=== PATIENT | male | born 1955 | race Caucasian/White ===

== ENCOUNTER 2021-01-04 08:42 | Outpatient (CLI) | payer OTHER ==
[2021-01-04 15:07] LABS: BASOPHILS # (AUTO) 0.1 10^3/uL (0.0-0.1); BASOPHILS % (AUTO) 0.8 %; EOSINOPHILS # (AUTO) 0.2 10^3/uL (0.0-0.7); EOSINOPHILS % (AUTO) 3.2 %; HCT - HEMATOCRIT 43.9 % (42.0-52.0); HGB - HEMOGLOBIN 14.4 g/dL (14.0-18.0); LYMPHOCYTES # (AUTO) 2.2 10^3/uL (1.5-3.5); LYMPHOCYTES % (AUTO) 34.7 %; MEAN CORPUSCULAR HEMOGLOBIN 32.6 pg (27.0-31.0); MEAN CORPUSCULAR HGB CONC 32.8 g/dL (32.0-36.0); MEAN CORPUSCULAR VOLUME 99.3 fL (80.0-94.0); MONOCYTES # (AUTO) 0.6 10^3/uL (0.0-1.0); MONOCYTES % (AUTO) 8.7 %; NEUTROPHILS # (AUTO) 3.3 10^3/uL (1.5-6.6); NEUTROPHILS % (AUTO) 52.1 %; PLT - PLATELET COUNT 226 10^3/uL (130-450); RED BLOOD COUNT 4.42 10^6/uL (4.70-6.10); RED CELL DISTRIBUTION WIDTH 12.3 % (12.0-15.0); WHITE BLOOD COUNT 6.3 x10^3/uL (4.8-10.8)
[2021-01-04 15:21] LABS: ALBUMIN/GLOBULIN RATIO 1.7 (1.0-2.2); ALKALINE PHOSPHATASE 80 IU/L (42-121); ALT ALANINE AMINOTRANSFERASE 20 IU/L (10-60); AST ASPARTATE AMINOTRANSFERASE 20 IU/L (10-42); BILIRUBIN,TOTAL 0.6 mg/dL (0.2-1.0); BUN - BLOOD UREA NITROGEN 17 mg/dL (6-20); CALCIUM 8.6 mg/dL (8.5-10.3); CARBON DIOXIDE - CO2 26 mmol/L (21-32); CHLORIDE 102 mmol/L (101-111); CHOL/HDL RATIO 7.2 (<5.0); CHOLESTEROL 222 mg/dL; CREATININE 1.2 mg/dL (0.6-1.2); GFR - MDRD 61 (>89); GLUCOSE 108 mg/dL (70-100); HDL CHOLESTEROL 31 mg/dL; POTASSIUM 3.8 mmol/L (3.5-5.0); SODIUM 135 mmol/L (135-145); TOTAL PROTEIN 6.3 g/dL (6.7-8.2); TRIGLYCERIDES 481 mg/dL
[2021-01-04 15:34] LABS: THYROID STIMULATING HORMONE 1.88 uIU/mL (0.34-5.60)
[2021-01-04 15:40] LABS: LDL CHOLESTEROL,DIRECT 93 mg/dL
== END 2021-01-04 08:43 | disposition home or self-care (01) ==
LOC: LAB.S 08:42
PROVIDERS: ATTEND Physician Assistant
DX: Z00.00 Encounter for general adult medical examination without abnormal findings (principal); J30.2 Other seasonal allergic rhinitis; Z82.3 Family history of stroke; Z82.49 Family history of ischemic heart disease and other diseases of the circulatory system; E78.5 Hyperlipidemia, unspecified
CPT/HCPCS: 36415; 80053; 80061; 83721; 84443; 85025

== ENCOUNTER 2021-02-15 09:26 | Outpatient (CLI) | payer OTHER ==
[2021-02-15] MEDS ORDERED: IOVERSOL 320 100 ML VIAL IVP ONE ×2 (09:49→12:08)
[2021-02-15] MEDS ORDERED: IOPAMIDOL-300 50 ML VIAL ONE (09:49)
[2021-02-15 09:54] LABS: CREATININE 1.2 mg/dL (0.6-1.2)
[2021-02-15] MEDS ORDERED: IOPAMIDOL-300 50 ML VIAL PO ONE (12:08)
--- NOTE | 2021-02-15 17:22 | CT Report ---
PROCEDURE: Abdomen/Pelvis W INDICATIONS: RECURRENT RIGHT INGUINAL HERNIA CONTRAST: IV CONTRAST: Optiray 320 ml: 100 PO CONTRAST: Isovue 300 ml50 TECHNIQUE: After the administration of contrast, 5 mm thick sections acquired from the diaphragms to the sym physis. 5 mm thick coronal and sagittal reformats were acquired. For radiation dose reduction, the following was used: automated exposure control, adjustment of mA and/or kV according to patient size . COMPARISON: None. FINDINGS: Image quality: Excellent. ABDOMEN: Lung bases: Lung bases are clear. Heart size is normal. There is a small hiatal hernia. Solid organs: There is a nonspecific oval hypodense lesion in the left hepatic lobe in segment 2 gia uring up to 2.0 x 1.5 cm. Findings are incompletely characterized on the study. Gallbladder appears w ithin normal limits without calcified gallstones. Biliary system is non dilated. The spleen is gagandeep l in size. Pancreas enhances normally without peripancreatic fat stranding or fluid collections. No adrenal nodules. Kidneys demonstrate no hydronephrosis. Peritoneum and bowel: Bowel loops demonstrate normal wall thickness and caliber. The appendix is nor mal in appearance. There is colonic diverticulosis without acute diverticulitis. No free fluid or ai r. Nodes and vessels: No retroperitoneal or mesenteric adenopathy by size criteria. Aorta and inferior vena cava are normal in size. Miscellaneous: No ventral hernias. PELVIS: Genitourinary: Bladder wall thickness is normal. Miscellaneous: There are minimal fat-containing bilateral inguinal hernias. No evidence of bowel her niation. No inguinal adenopathy. Bones: No suspicious bony lesions. No vertebral body compression fractures. IMPRESSION: 1. Minimal bilateral fat-containing inguinal hernias. No evidence of bowel herniation. 2. Nonspecific hypodense lesion in the left lobe. Recommend further evaluation with a liver protocol MRI or CT when clinically feasible. Reviewed by: Figueroa Garcia MD on 02/15/2021 5:21 PM PDT Approved by: Figueroa Garcia MD on 02/15/2021 5:21 PM PDT Station ID: [id number]
== END 2021-02-15 09:27 | disposition home or self-care (01) ==
LOC: DI 09:26
PROVIDERS: ATTEND Surgery
DX: Z01.818 Encounter for other preprocedural examination (principal); Z20.822 Contact with and (suspected) exposure to COVID-19; K40.20 Bilateral inguinal hernia, without obstruction or gangrene, not specified as recurrent; R93.2 Abnormal findings on diagnostic imaging of liver and biliary tract
CPT/HCPCS: 36415; 74177; 82565; 87635; Q9967

== ENCOUNTER 2021-02-18 06:39 | Inpatient (IN) | payer OTHER ==
[~2021-02-18 06:39] MED LIST: ceFAZolin 2 GM/50 ML 2 GM/50 ML BAG IV ONE
[2021-02-18] MEDS ORDERED: LACTATED RINGERS 1,000 ML IV ONE ×3 (06:51→16:35)
--- NOTE | 2021-02-18 08:38 | ANESTHESIA ---
Pre-Anesthesia VS, & Labs - Diagnosis lright inguinal hernia - Procedure laparoscopic hernia repair, right possible bilateral Vital Signs: Temp Pulse Resp BP Pulse Ox 36.5 C 66 16 120/95 H 97 02/18/21 06:54 02/18/21 06:54 02/18/21 06:54 02/18/21 06:54 02/18/21 06:54 Height: 5 ft 7 in Weight (kg): 74.9 kg Body Mass Index: 25.8 BMI Classification: Overweight - NPO >8 hours Home Medications and Allergies Home Medications: Ambulatory Orders Acyclovir 400 mg PO BID 02/16/21 gemfibroziL [Lopid] 600 mg PO BIDAC 02/16/21 Acyclovir 400 mg PO BID 02/16/21 gemfibroziL [Lopid] 600 mg PO BIDAC 02/16/21 Allergies/Adverse Reactions: Allergies Allergy/AdvReac Type Severity Reaction Status Date / Time No Known Drug Allergies Allergy Verified 02/16/21 08:53 Anes History & Medical History - Anesthetic History Anesthesia Complications: reports: No previous complications - Medical History Cardiovascular: reports: High cholesterol Pulmonary: reports: None Gastrointestinal: reports: None Urinary: reports: None Musculoskeletal: reports: Osteoarthritis Endocrine/Autoimmune: reports: None Skin: reports: Herpes zoster - Surgical History General: reports: Colonoscopy, Other Orthopedic: reports: Arthroscopic surgery Exam General: Alert Dental: WNL Mouth Opening: Greater than 4 Fingerbreadths Neck Mobility: Normal Mallampati classification: II Respiratory: Lungs clear Cardiovascular: Regular rate Plan Anesthesia Type: General Consent for Procedure(s) Verified and Reviewed: Yes Code Status: Attempt Resuscitation ASA classification: 2-Mild systemic disease Is this case an emergency?: No
[2021-02-18] MEDS ORDERED: LIDOCAINE-MPF 2% 5 ML VIAL ONE (08:39)
[2021-02-18] MEDS ORDERED: MIDAZOLAM 2 MG/2 ML VIAL ONE (08:39)
[2021-02-18] MEDS ORDERED: ROCURONIUM 50 MG/5 ML VIAL ONE ×2 (08:39→13:26)
[2021-02-18] MEDS ORDERED: PROPOFOL 200 MG/20 ML VIAL IVP ONE (08:39)
[2021-02-18] MEDS ORDERED: fentaNYL 100 MCG/2 ML VIAL ONE ×2 (08:39→12:26)
[2021-02-18] MEDS ORDERED: BUPIVACAINE 0.5% PF 30 ML VIAL ONE (11:41)
[2021-02-18] MEDS ORDERED: LIDOCAINE MPF 2%-EPI 1:200000 20 ML VIAL ONE (11:41)
[2021-02-18] MEDS ORDERED: BUPIVACAINE 0.5% PF 30 ML VIAL INFIL ONE (12:19)
[2021-02-18] MEDS ORDERED: LIDOCAINE 2%-EPI 1:100000 20 ML MDV SUBQ ONE (12:20)
[2021-02-18] MEDS ORDERED: DEXAMETHASONE 4 MG/ML VIAL ONE (12:50)
[2021-02-18] MEDS ORDERED: HYDROmorphone 1 MG/ML CARPUJECT ONE (15:09)
[2021-02-18] MEDS ORDERED: GLYCOPYRROLATE 1 MG/5 ML VIAL ONE (15:49)
[2021-02-18] MEDS ORDERED: NEOSTIGMINE 1 MG/1 ML 10 ML MDV ONE (15:49)
[2021-02-18] MEDS ORDERED: ONDANSETRON 4 MG/2 ML VIAL ONE (15:50)
[2021-02-18] MEDS ORDERED: ROPIVACAINE 0.5% PF 20 ML AMPULE ONE (15:52)
[2021-02-18] MEDS ORDERED: LACTATED RINGERS 100 ML IV ONE (16:35)
[2021-02-18] MEDS ORDERED: HYDROmorphone 0.5 MG/0.5 ML SYRINGE IVP PRN ×2 (16:40→17:05)
[2021-02-18] MEDS ORDERED: ONDANSETRON 4 MG/2 ML VIAL IVP PRN ×2 (16:40→17:05)
--- NOTE | 2021-02-18 16:49 | OPERATIVE REPORT ---
Operative Report - General Admit Date: 02/19/21 Procedure Date: 02/18/21 Planned Procedure: 1. Diagnostic laparoscopy 2. Transabdominal preperitoneal (ELLE) bilateral inguinal hernia repair 3. Umbilical hernia repair primary open 4. Transversus abdominis plane block Pre-Op Diagnosis: Recurrent bilateral inguinal hernia, Abdominal pain and inguinal pain. Procedure Performed: 1. Diagnostic laparoscopy 2. Transabdominal preperitoneal (ELLE) bilateral inguinal hernia repair 3. Umbilical hernia repair primary open 4. Transversus abdominis plane block 5. Extensive adhesiolysis 6. Bilateral mesh repair with extra-large preformed mesh Post Op Diagnosis: Same; extensive adhesions; large left-sided mesh plug; bilateral direct def - Procedure Note Primary Surgeon: Adilia Secondary Surgeon: Elmer Anesthesia Provider: Yudy Anesthesia Technique: General ET tube, Local, Regional block Pathology: 1. Left cord lipoma 2. Right cord lipoma 3. Colonic adhesion Estimated Blood Loss (mL): 25 Indications: See EMR however multiple failed historic hernia repairs bilateral open. Findings: 1. Dense pelvic adhesions 2. Large mesh plug on the left requiring careful adhesiolysis 3. Thin peritoneum requiring cautious and diligent adhesiolysis to prevent rants and/or tears 4. Large direct/indirect/femoral defects appreciated bilaterally which were adequately covered with extra-large preformed left and right meshes 5. Umbilical hernia repaired open 6. Successful transabdominal preperitoneal repair with peritoneum closed laparoscopically with V-Loc suture Complications: NONE - Other Other Information/Narrative: Operative Report: Procedures performed: 1. Diagnostic laparoscopy 2. Transabdominal preperitoneal (ELLE) bilateral inguinal hernia repair 3. Umbilical hernia repair primary open 4. Transversus abdominis plane block 5. Extensive adhesiolysis 6. Bilateral mesh repair with extra-large preformed mesh Intraoperative findings: 1. Dense pelvic adhesions 2. Large mesh plug on the left requiring careful adhesiolysis 3. Thin peritoneum requiring cautious and diligent adhesiolysis to prevent rants and/or tears 4. Large direct/indirect/femoral defects appreciated bilaterally which were adequately covered with extra-large preformed left and right meshes 5. Umbilical hernia repaired open 6. Successful transabdominal preperitoneal repair with peritoneum closed laparoscopically with V-Loc suture Procedural report: Patient was taken to the operating room placed supine on the operating table informed consent was already obtained. Patient was induced for general endotracheal anesthesia. Laird catheter was placed sterilely. Patient was prepped and draped in the usual sterile fashion. A timeout was called and agreed to by all in the room. Patient was taken to the operating room placed supine on the operating table. Informed consent was already obtained. Patient was induced for general endotracheal anesthesia. Patient at this time was placed for Laird catheter. Patient was offloaded and padded. Patient was prepped and draped in the usual sterile fashion. Timeout was called and agreed to by all in the room. A plan access point was incised periumbilical. An incision was made sharply. Skin and subcutaneous tissues were divided using Bovie electrocautery. Fascia was encountered it was sharply divided. Muscle was bluntly divided. Posterior fascia was elevated and sharply divided. Abdominal cavity was entered without incident. Patient was noted for an umbilical hernia that would be enlarged to accommodate the Malik trocar. We insufflated the abdomen to 50 mmHg without any complication. Additional trochars were placed laterally on the left 5 mm to begin with a right-sided inguinal hernia repair. Please note dense pelvic adhesions were noted. Case began with adhesiolysis as follows: Trochars were sequentially placed towards affording appropriate abdominal access for laparoscopic and ultimately robotic adhesiolysis and enterolysis. This was performed in such a way as to maximize exposure and minimize abdominal trauma. We clearly visualized, after appropriate and lengthy laparoscopic adhesiolysis, each trocar placement. Thereafter once appropriate and safe exposure was achieved without any inadvertent injuries or other complicating factors, we proceeded laparoscopically in such a way as to take down the patient's extensive intra- abdominal adhesions using sharp laparoscopic dissection, diligent electrocautery, and appropriate countertraction. Please note for multiple reasons as listed above under brief procedural findings, this patient was best suited to minimal access adhesiolysis towards avoiding open intervention, reducing the associated risks thereof, maximizing recovery, minimizing postoperative morbidity and associated stigmata, and enhancing the patient's convalescence towards assuring safe and expeditious ushering of patient into the next step of therapeutic intervention which was crucial in overall plan of care. This proceeded without any untoward complications, and without any inadvertent injuries or other adverse effect events. At this time we proceeded to repair the right inguinal hernia. We proceeded with two 5 mm trochars both on the left lateral to the rectus sheath. We proceeded with the camera in the umbilicus. This was approached in this manner given the planned umbilical hernia laparoscopic assisted and the plan to perform inguinal hernia repair laparoscopically as well. Please note the patient was marked for bilateral inguinal hernia repair preoperatively which was also confirmed during timeout. Patient had had a total of 4 inguinal hernia repairs throughout his life; 2 on each side. And we proceeded to perform bilateral repairs and again began with the right. Both inguinal regions were inspected and the median umbilical ligament, medial umbilical ligament and lateral umbilical fold were identified the median umbilical ligament was divided sharply with electrocautery to achieve optimal exposure. The right abdominal peritoneum was incised with laparoscopic electrocautery along a line 2 cm above the superior edge of the hernia defect, extending from the medial median umbilical ligament to the anterior superior iliac spine. The peritoneal flap was mobilized inferiorly using blunt and sharp dissection. The inferior epigastric vessels were exposed and the pubic symphysis was identified. Tobin's ligament was dissected to its junction with femoral vein. The dissection was continued inferiorly to the iliopubic tract, with care taken to avoid injury to the femoral branch of the general femoral nerve and the lateral femoral cutaneous nerve. Please note that as we began and continued dissection of the peritoneum there was extensive adhesions which were divided to avoid any inadvertent injury if the peritoneum was compromised. The right ureter was identified and protected throughout. The cord structures were skeletonized. The direct hernia sac was identified and reduced by gentle traction. The indirect hernia sac was noted to be small and was easily mobilized from the cord structures and reduced into the peritoneal cavity. A extra large piece of mesh 3D Bard synthetic mesh was rolled longitudinally into a compact cylinder and passed through the umbilical trocar. The cylinder was placed along the inferior aspect of the working space and unrolled into place to completely cover the defect direct indirect and femoral spaces. We used a Bard 3D max mesh [extra-large] design for right inguinal hernia placement. With great care we unraveled the mesh which provided excellent coverage of all the large defects with that were appreciated which included a large indirect defect, a large direct defect as well as a large femoral defect all on the right. We tacked the mesh with permanent tacker medially and made sure that we had good apposition throughout it was tacked laterally as well. Secondary to the friability of the peritoneum we opted to close this side at the conclusion of the case. Please note that great care was taken throughout this case given the friability and thinness of the historic peritoneum which was maintained intact throughout At this time we proceeded to repair the left inguinal hernia. We proceeded with two 5 mm trochars both on the right lateral to the rectus sheath. We proceeded with the camera in the umbilicus. This was approached in this manner given the planned umbilical hernia laparoscopic assisted and the plan to perform inguinal hernia repair laparoscopically as well. Please note the patient was marked for bilateral inguinal hernia repair preoperatively which was also confirmed during timeout. Please see above Both inguinal regions were expected and the median umbilical ligament, medial umbilical ligament and lateral umbilical fold were identified the median umbilical ligament was divided sharply with electrocautery to achieve optimal exposure. The left abdominal peritoneum was incised with endoscopic electrocautery along a line 2 cm above the superior edge of the hernia defect, extending from the medial median umbilical ligament to the anterior superior iliac spine. The peritoneal flap was mobilized inferiorly using blunt and sharp dissection. The inferior epigastric vessels were exposed and the pubic symphysis was identified. Please note a large left mesh was noted and it adhered to the abdominal peritoneum which necessarily had to be carefully resected to maintain its integrity. This area was closed independently while addressing bilateral peritoneal access incisions at the conclusion of the case. Tobin's ligament was dissected to its junction with femoral vein. The dissection was continued inferiorly to the iliopubic tract, with care taken to avoid injury to the femoral branch of the general femoral nerve and the lateral femoral cutaneous nerve. Please note that as we began and continued dissection of the peritoneum there was left sided and sigmoid colonic adhesions which were divided to avoid any inadvertent injury if the peritoneum was compromised. The left ureter was identified and protected throughout. A dense adhesion of the sigmoid colon which appeared to be adjacent to a diverticulum was excised and sent for permanent pathology. This area was also reinforced for closure using a Endoloop however there was no concerns for any exposed bowel. There was no spillage as well. The cord structures were skeletonized. The direct hernia sac was identified and reduced by gentle traction. The indirect hernia sac was noted to be small and was easily mobilized from the cord structures and reduced into the peritoneal cavity. A large piece of mesh was rolled longitudinally into a compact cylinder and passed through the umbilical trocar. The cylinder was placed along the inferior aspect of the working space and unrolled into place to completely cover the defect direct indirect and femoral spaces. We used a [employer] 3D max mesh [extra-large] design for left inguinal hernia placement. The mesh was secured with a permanent tacking device laparoscopically into place along the pubic tubercle. We positioned this in such a way in order to provide maximum prophylaxis against recurrence. Thereafter we proceeded to close the peritoneal flap as follows. We closed the peritoneal flap using a V-Loc suture starting laterally and progressing medially this was closed over mesh without any complication. Please note that this was performed by directionally with laparoscopic needle drivers without any complication. There was no exposed mesh opposing any of the intra-abdominal contents after completing this portion of the operative intervention. After assuring adequate hemostasis we proceeded with the umbilical hernia repair. The small bowel was run without any complication. There is no inadvertent injury. Wounds were hemostatic. We proceeded to desufflate the abdomen after removing all the secondary 5 mm trochars bilaterally. We plan to repair the umbilical hernia with multiple [id number]'s of 0 Vicryl. This was approximated without any complication. Abdomen was already desufflated. Please note the patient had historic right orchiectomy. Both scrotal sacs were evaluated and testicle were evaluated at the conclusion of this case after dressings were applied. A dressing the umbilical hernia once again, after closure, we proceeded with umbilical plasty. All surgical incisions were reapproximated with skin sandee. All wounds were dressed with Telfa and Tegaderm. I was present for the operative intervention in its entirety. All counts of sponges needles and instruments were correct at the conclusion of this case. Patient tolerated well for which is no complication. Laird catheter was kept in place. Please note that voice recognition software was used to transcribe this note and inadvertent errors might persist in spite of review and editing. I am obliged to you for your attention. I am thankful to you for allowing me to participate with you in this care of this patient.
[2021-02-18] MEDS ORDERED: fentaNYL 100 MCG/2 ML VIAL IVP PRN (17:05)
[2021-02-18] MEDS ORDERED: MORPHINE 2 MG/ML CARPUJECT IVP PRN (17:05)
[2021-02-18] MEDS ORDERED: NALOXONE 0.4 MG/ML VIAL IVP PRN (17:05)
[2021-02-18] MEDS ORDERED: ATROPINE ABBOJECT 1 MG/10 ML SYRINGE IVP PRN (17:05)
--- NOTE | 2021-02-18 17:05 | PROVIDER PROGRESS NOTE ---
Progress Note Procedure Date: 02/18/21 Planned Procedure: 1. Diagnostic laparoscopy 2. Transabdominal preperitoneal (ELLE) bilateral inguinal hernia repair 3. Umbilical hernia repair primary open 4. Transversus abdominis plane block Pre-Op Diagnosis: Recurrent bilateral inguinal hernia, Abdominal pain and inguinal pain. Procedure Performed: 1. Diagnostic laparoscopy 2. Transabdominal preperitoneal (ELLE) bilateral inguinal hernia repair 3. Umbilical hernia repair primary open 4. Transversus abdominis plane block 5. Extensive adhesiolysis 6. Bilateral mesh repair with extra-large preformed mesh Post Op Diagnosis: Same; extensive adhesions; large left-sided mesh plug; bilateral direct def - Procedure Note Primary Surgeon: Adilia Secondary Surgeon: Elmer Anesthesia Provider: Yudy Anesthesia Technique: General ET tube, Local, Regional block Pathology: 1. Left cord lipoma 2. Right cord lipoma 3. Colonic adhesion Estimated Blood Loss (mL): 25 Indications: See EMR however multiple failed historic hernia repairs bilateral open. Findings: 1. Dense pelvic adhesions 2. Large mesh plug on the left requiring careful adhesiolysis 3. Thin peritoneum requiring cautious and diligent adhesiolysis to prevent rants and/or tears 4. Large direct/indirect/femoral defects appreciated bilaterally which were adequately covered with extra-large preformed left and right meshes 5. Umbilical hernia repaired open 6. Successful transabdominal preperitoneal repair with peritoneum closed laparoscopically with V-Loc suture Complications: NONE
--- NOTE | 2021-02-18 17:06 | ANESTHESIA POST OP EVALUATION ---
Anesthesia Post Eval - Post Anesthesia Eval Vitals: Last Vital Signs Temp 36.6 C 02/18/21 16:58 Pulse 100 02/18/21 16:58 Resp 14 02/18/21 16:58 BP 158/97 H 02/18/21 16:58 Pulse Ox 100 02/18/21 16:58 CV Function Including HR & BP: Stable Pain Control: Satisfactory Nausea & Vomiting: Negative Mental Status: Baseline Respiratory Status: Airway Patent Hydration Status: Satisfactory Anesthesia Complications: None
[2021-02-18] MEDS: LACTATED RINGERS 1,000 ML IV SCH (17:47)
[2021-02-18] MEDS ORDERED: LACTATED RINGERS 1,000 ML IV SCH (18:00)
[2021-02-18] MEDS ORDERED: TAMSULOSIN 0.4 MG CAPSULE PO ONE (19:00)
[2021-02-18] MEDS: oxyCODONE 5 MG TABLET PO PRN ×2 (19:30→23:54)
[2021-02-19] MEDS: LACTATED RINGERS 1,000 ML IV SCH ×3 (02:19→21:57)
[2021-02-19] MEDS: oxyCODONE 5 MG TABLET PO PRN ×2 (07:34→12:18)
--- NOTE | 2021-02-19 08:38 | PHARMACY PROGRESS NOTE ---
- Best Possible Medication History Admit Date and Time: Processed by: Nursing Medication History completed: Yes Patient Interview: Completed Secondary Source(s): Physician records, Pharmacy records, Insurance records As the person ultimately responsible for medication therapy, providers are able to order a medication from an existing home medication list in [facility] via the "Reconcile Routine" prior to Confirmation of that medication by clinical support specialist. Such practice is discouraged except when the physician, in their clinical judgment, deems that a medical need exists for a medication without regard to previous use.
[2021-02-19] MEDS: TAMSULOSIN 0.4 MG CAPSULE PO SCH (08:43)
[2021-02-19] MEDS ORDERED: ceFAZolin 2 GM in SODIUM CHLORIDE 0.9% 100ML 100 ML IV SCH (13:00)
[2021-02-19] MEDS: KETOROLAC 30 MG/ML VIAL IVP SCH ×2 (13:18→17:49)
[2021-02-19] MEDS: DOCUSATE SODIUM 100 MG CAPSULE PO SCH ×2 (13:19→21:18)
[2021-02-19] MEDS: polyethylene glycoL 3350 17 GM PACKET PO SCH ×2 (13:19→21:18)
[2021-02-19] MEDS: methocarbamoL 500 MG TABLET PO SCH ×2 (13:19→17:49)
[2021-02-19] MEDS: ceFAZolin 2 GM/50 ML 2 GM/50 ML BAG IV SCH ×2 (13:20→21:18)
--- NOTE | 2021-02-19 18:06 | PROVIDER PROGRESS NOTE ---
Progress Note Subjective Postoperative day #1 status post below listed procedure. Patient with nausea. Abdominal distention. No bowel function as of yet. Significant pain. Significant history of multiple failed bilateral inguinal hernias requiring extensive adhesiolysis and operative intervention to achieve bilateral laparos copic transabdominal preperitoneal repairs. Pre-Op Diagnosis: Recurrent bilateral inguinal hernia, Abdominal pain and inguinal pain. Procedure Performed: 1. Diagnostic laparoscopy 2. Transabdominal preperitoneal (ELLE) bilateral inguinal hernia repair 3. Umbilical hernia repair primary open 4. Transversus abdominis plane block 5. Extensive adhesiolysis 6. Bilateral mesh repair with extra-large preformed mesh Post Op Diagnosis: Same; extensive adhesions; large left-sided mesh plug; bilateral direct def Objective Afebrile hemodynamically except above General Appearance: positive: No acute distress Eyes Bilateral: positive: Normal inspection ENT: positive: ENT inspection nml Neck: positive: Nml inspection Respiratory: positive: Chest non-tender, No respiratory distress, Breath sounds nml. negative: Wheezes, Rales, Rhonchi Cardiovascular: positive: Regular rate & rhythm Abdomen: positive: No distention, Other. negative: Guarding, Rebound Extremities: positive: Non-tender, Full ROM, Nml appearance Neurologic/Psychiatric: positive: Oriented x3, CN's nml (2-12) Abdominal Exam: Inspection - Erythema none; Scars trocars well healed Auscultation -normoactive bowel sounds Palpation - Hernias none; Fluctuance none; Induration none; Scar N/A [place] intact. Please note the patient has history of right orchiectomy. Left testicle intact. Impression/Plan Postoperative day #1. Ileus. Transition to inpatient secondary to postoperative pain, nausea, and ileus. (1) GI - IVF, bowel regimen, advance diet as tolerated. GI ppx. Anticipate ileus. Opiate sparring analgesia. (2) SURGERY -pain management. Avoid heavy lift push pull. (3) Renal/Lytes - continue IVF. Renal indices within normal limits. (4) Respiratory - O2 as necessary. Continue IS. (5) Heme - Will continue with DVT ppx. H/H stable. (6) Cardiovascular - HD acceptable. (7) Neuro - Opiate sparring analgesia. Antispasmodics with Robaxin. Toradol. Neuropathic agents. (8) Immune/Infectious Disease - Continue antibiotics given complex recurrent bilateral inguinal hernia repair with mesh over pre-existing mesh. No spillage clean case.
[2021-02-20] MEDS: methocarbamoL 500 MG TABLET PO SCH ×3 (00:03→13:21)
[2021-02-20] MEDS: KETOROLAC 30 MG/ML VIAL IVP SCH ×3 (00:03→13:21)
[2021-02-20 05:12] LABS: BASOPHILS % (AUTO) 0.4 %; EOSINOPHILS # (AUTO) 0.1 10^3/uL (0.0-0.7); EOSINOPHILS % (AUTO) 1.9 %; HCT - HEMATOCRIT 33.1 % (42.0-52.0); HGB - HEMOGLOBIN 10.9 g/dL (14.0-18.0); LYMPHOCYTES # (AUTO) 1.7 10^3/uL (1.5-3.5); LYMPHOCYTES % (AUTO) 24.3 %; MEAN CORPUSCULAR HEMOGLOBIN 32.7 pg (27.0-31.0); MEAN CORPUSCULAR HGB CONC 32.9 g/dL (32.0-36.0); MEAN CORPUSCULAR VOLUME 99.4 fL (80.0-94.0); MEAN PLATELET VOLUME 9.7 fL (7.4-11.4); MONOCYTES # (AUTO) 0.7 10^3/uL (0.0-1.0); MONOCYTES % (AUTO) 10.1 %; NEUTROPHILS # (AUTO) 4.3 10^3/uL (1.5-6.6); NEUTROPHILS % (AUTO) 62.9 %; PLT - PLATELET COUNT 159 10^3/uL (130-450); RED BLOOD COUNT 3.33 10^6/uL (4.70-6.10); RED CELL DISTRIBUTION WIDTH 12.4 % (12.0-15.0); WHITE BLOOD COUNT 6.8 x10^3/uL (4.8-10.8)
[2021-02-20 05:25] LABS: ALBUMIN/GLOBULIN RATIO 1.4 (1.0-2.2); BILIRUBIN,TOTAL 0.5 mg/dL (0.2-1.0); CALCIUM 8.1 mg/dL (8.5-10.3); CREATININE 1.2 mg/dL (0.6-1.2); MAGNESIUM 2.1 mg/dL (1.7-2.8); PHOSPHORUS 3.1 mg/dL (2.5-4.6); TOTAL PROTEIN 5.2 g/dL (6.7-8.2)
[2021-02-20] MEDS: ceFAZolin 2 GM/50 ML 2 GM/50 ML BAG IV SCH (05:42)
[2021-02-20] MEDS: TAMSULOSIN 0.4 MG CAPSULE PO SCH (09:04)
[2021-02-20] MEDS: polyethylene glycoL 3350 17 GM PACKET PO SCH (09:04)
[2021-02-20] MEDS: DOCUSATE SODIUM 100 MG CAPSULE PO SCH (09:04)
[2021-02-20] MEDS: LACTATED RINGERS 1,000 ML IV SCH (09:35)
[2021-02-20 12:10] VITALS: BP 130/76
--- NOTE | 2021-02-20 12:44 | Discharge Plan ---
Discharge Plan Problem Reviewed?: Yes Disposition: Home, Self Care Condition: Good Prescriptions: oxyCODONE [Roxicodone] 5 mg PO Q4HR PRN #30 tablet PRN Reason: Pain methocarbamoL [Robaxin] 500 mg PO Q6HR PRN #50 tablet PRN Reason: Spasms Cefadroxil [Duricef] 500 mg PO BID #14 cap Tamsulosin [Flomax] 0.4 mg PO DAILY #28 cap Diet: Soft Activity Restrictions: No heavy push/pull/lift Shower Restrictions: No Driving Restrictions: Yes (No driving while taking narcotic pain medication) Weight Bearing: No heavy lift push pull Instruction Topics: Hernia Surg, Hernia, Hernia Laparoscopic Repair ELLE Plan of Treatment: DISCHARGE INSTRUCTIONS TEMPLATE: No heavy lifting, pushing, or pulling. Stairs are allowed, no strenuous/exertional activities. 5-10lbs weight carrying limit (i.e. gallon of milk) If provided, abdominal binder while out of bed and while ambulating. Call or proceed to clinic/ER for fevers, severe pain, nausea, vomiting, inability to pass flatus/stool, bleeding, wound redness/discharge, weakness, excessively loose stool/diarrhea, or for any other reasonably worrisome symptom or concern. Soft diet, no raw vegetables, avoid high fiber foods. Colace 100mg by mouth twice to three times daily while taking narcotic pain medication. If no bowel movement in 24-48hr, may take 17g Miralax in 8oz water twice daily until bowel movement. May shower, no submersive bathing. Follow up in clinic in 2-4 weeks for wound check and staple removal. No driving while taking narcotic pain medications. Follow up with primary care provider and/or medical subspecialist following discharge as well. Patient not allowed to drive self today or within 24 hours of surgery. Impression/Plan 1. Oxycodone every 4-6 hours as needed for pain 2. Take Colace twice daily and MiraLAX daily as per above while taking narcotics and if no bowel function 3. Avoid nonsteroidals and continue with acetaminophen 650 mg every 6 hours not to exceed 4 g daily 4. Patient to also follow-up in surgery clinic for staple removal. 5. Patient to call or return to the hospital through ER for fevers, nausea, vomiting, abdominal pain or any other worrisome symptoms or concerns. 6. Patient not to return to any work capacity until seen in clinic. 7. Continue antibiotics prophylactic given historic mesh No Smoking: If you smoke, Please STOP! Call for help. Follow-up with: REX MORA PA-C [Primary Care Provider] - Rashaad Pat MD [Provider Admit Priv/Credential] - 2 Weeks
--- NOTE | 2021-02-20 12:45 | DISCHARGE SUMMARY ---
"Discharge Summary Admit Date: 02/18/21 Discharge Date: 02/20/21 Discharging Provider: Adilia Code Status: Attempt Resuscitation Condition at Discharge: Good Discharge Disposition: 01 Home, Self Care - DIAGNOSES Admission Diagnoses: 1. Bilateral recurrent inguinal hernia 2. Bilateral direct, indirect, and femoral defects 3. Umbilical hernia 4. Abdominal adhesions 5. Ileus, postoperative 6. Urinary retention Discharge Diagnoses with Status of Each Condition: 1. Bilateral recurrent inguinal hernia - REPAIRED 2. Bilateral direct, indirect, and femoral defects - REPAIRED 3. Umbilical hernia - REPAIRED 4. Abdominal adhesions - Lysed 5. Ileus, postoperative - Resolved 6. Urinary retention - Resolved - HPI History of Present Illness: 65-year-old male presenting for bilateral inguinal hernia repair. History of multiple bilateral hernia repairs which have failed. Longstanding symptoms from bilateral failed repairs. Patient denies change in bowel function, denies bleeding per rectum, and also denies reflux associated symptoms. Patient does not use tobacco. Patient has a history of alcohol use but denies any associated abuse. No history of heart attack or stroke. Patient takes no systemic anticoagulation. - CONSULTS | PROCEDURES Consultations: None Procedures: OPERATIVE PROCEDURES: 1. Diagnostic laparoscopy 2. Transabdominal preperitoneal (ELLE) bilateral inguinal hernia repair 3. Umbilical hernia repair primary open 4. Transversus abdominis plane block 5. Extensive adhesiolysis 6. Bilateral mesh repair with extra-large preformed mesh Findings: 1. Dense pelvic adhesions 2. Large mesh plug on the left requiring careful adhesiolysis 3. Thin peritoneum requiring cautious and diligent adhesiolysis to prevent rants and/or tears 4. Large direct/indirect/femoral defects appreciated bilaterally which were adequately covered with extra-large preformed left and right meshes 5. Umbilical hernia repaired open 6. Successful transabdominal preperitoneal repair with peritoneum closed laparoscopically with V-Loc suture - HOSPITAL COURSE Hospital Course: Patient underwent above listed procedure. Postoperatively the patient had nausea and associated urinary retention. He was maintained on antiemetics and slow resumption of oral intake. He was aggressively started on a bowel regimen. This is not surprising given the extent of his adhesions and also the difficulty with which this repair was achieved. He also had urinary retention which was addressed with Flomax started perioperatively. Laird catheter did not have to be reinserted. Postoperatively the patient was managed for postoperative analgesia and resumption of bowel function. Patient had successfully passed trial of void with discontinuation of Laird. Tolerated oral intake without any complication. Denied nausea denied vomiting. Was advanced for diet without any complication. Was counseled that given evidence of umbilical hernia which was repaired at the time of the patient's operative intervention that she should avoid any heavy lifting pushing or pulling. Moreover the patient was advised that given the extent of the dissection and the bilateral inguinal hernia repairs for 3 large defects on both sides, he was also to limit exertional activity. Patient was maintained on a bowel regimen. Patient was tolerating oral analgesia, p.o. nutrition with soft diet, voiding spontaneously, with positive resumption of bowel function. Afebrile hemodynamic ally acceptable. Electrolytes repleted throughout and blood counts as a relates to risks of anemia in the perioperative setting and leukocytosis as an inflammatory marker were all stable without any concerns. Patient was maintained for antibiotics given the apposition of historic mesh to the new implant as part of the bilateral ELLE repair; the historic mesh plug in the left lower quadrant from could not be resected given how densely it was incorporated. Discharge instructions given. Analgesia with oxycodone provided at time of discharge. Patient plan for follow-up and will be notified of pathology once returned. - ALLERGIES Allergies/Adverse Reactions: Allergies Allergy/AdvReac Type Severity Reaction Status Date / Time No Known Drug Allergies Allergy Verified 02/16/21 08:53 - MEDICATIONS Home Medications: Ambulatory Orders Medication Instructions Recorded Confirmed Acyclovir 400 mg PO BID 02/16/21 02/16/21 gemfibroziL [Lopid] 600 mg PO BIDAC 02/16/21 02/18/21 Cefadroxil [Duricef] 500 mg PO BID #14 cap 02/20/21 Docusate Sodium 100Mg Capsule 100 mg PO BID 02/20/21 [Colace 100Mg Capsule] Tamsulosin [Flomax] 0.4 mg PO DAILY #28 cap 02/20/21 methocarbamoL [Robaxin] 500 mg PO Q6HR PRN #50 tablet 02/20/21 oxyCODONE [Roxicodone] 5 mg PO Q4HR PRN #30 tablet 02/20/21 polyethylene glycoL 3350 [Miralax] 17 gm PO BID packet 02/20/21 - PHYSICAL EXAM AT DISCHARGE Physical Exam Other/Comments: General Appearance: positive: No acute distress Eyes Bilateral: positive: Normal inspection ENT: positive: ENT inspection nml Neck: positive: Nml inspection Respiratory: positive: Chest non-tender, No respiratory distress, Breath sounds nml. negative: Wheezes, Rales, Rhonchi Cardiovascular: positive: Regular rate & rhythm Abdomen: positive: No distention, Other. negative: Guarding, Rebound Extremities: positive: Non-tender, Full ROM, Nml appearance Neurologic/Psychiatric: positive: Oriented x3, CN's nml (2-12) Abdominal Exam: Inspection - Erythema none ; Scars trocars well healed Auscultation - normoactive bowel sounds Palpation - Hernias none Fluctuance none ; Induration none ; Scar N/A All dressings clean dry and intact. Patient underwent above listed procedure without any complication. Patient underwent operative intervention as listed in the electronic medical record. Tolerated procedure well for which there was no complication. - LABS Result Diagrams: 02/20/21 04:40 02/20/21 04:40 - SEPSIS Current Stage of Sepsis: Ruled out - FOLLOW UP Follow Up: See Discharge Plan. - TIME SPENT Time Spent in Discharge (Minutes): 60"
== END 2021-02-20 14:30 | disposition home or self-care (01) | DRG 940 ==
LOC: SDS 06:39 → MS2 17:38 → SDS 02-19 17:51 → MS2 02-19 17:52
PROVIDERS: ADMIT Surgery; ATTEND Surgery
PROC: 0YUA4JZ Supplement Bilateral Inguinal Region with Synthetic Substitute, Percutaneous Endoscopic Approach (ICD-10-PCS; principal; 2021-02-18 07:30)
DX: G89.18 Other acute postprocedural pain (principal); K56.7 Ileus, unspecified; R33.9 Retention of urine, unspecified; K40.21 Bilateral inguinal hernia, without obstruction or gangrene, recurrent; D17.6 Benign lipomatous neoplasm of spermatic cord; K66.0 Peritoneal adhesions (postprocedural) (postinfection); K42.9 Umbilical hernia without obstruction or gangrene; E66.3 Overweight; Z68.25 Body mass index [BMI] 25.0-25.9, adult
CPT/HCPCS: 36415; 49651; 80053; 83735; 84100; 85025; A9270; C1781; J0690; J1170; J7120

== ENCOUNTER 2021-09-05 08:41 | Outpatient (CLI) | payer OTHER ==
[2021-09-05 14:51] LABS: CHOL/HDL RATIO 6.4 (<5.0); CHOLESTEROL 198 mg/dL; HDL CHOLESTEROL 31 mg/dL; LDL CHOLESTEROL,CALCULATED 117 mg/dL; LDL/HDL RATIO 3.8 (<3.6); TRIGLYCERIDES 252 mg/dL; VLDL CHOLESTEROL 50 mg/dL
== END 2021-09-05 08:42 | disposition home or self-care (01) ==
LOC: LAB.S 08:41
PROVIDERS: ATTEND Internal Medicine
DX: E78.5 Hyperlipidemia, unspecified (principal); E78.1 Pure hyperglyceridemia; Z82.3 Family history of stroke; Z82.49 Family history of ischemic heart disease and other diseases of the circulatory system
CPT/HCPCS: 36415; 80061; 83721

== ENCOUNTER 2021-11-28 08:50 | Outpatient (CLI) | payer BC ==
[2021-11-28 14:57] LABS: BASOPHILS # (AUTO) 0.1 10^3/uL (0.0-0.1); EOSINOPHILS # (AUTO) 0.2 10^3/uL (0.0-0.7); EOSINOPHILS % (AUTO) 2.9 %; HCT - HEMATOCRIT 46.5 % (42.0-52.0); HGB - HEMOGLOBIN 15.6 g/dL (14.0-18.0); LYMPHOCYTES # (AUTO) 2.1 10^3/uL (1.5-3.5); MEAN CORPUSCULAR HEMOGLOBIN 32.7 pg (27.0-31.0); MEAN CORPUSCULAR HGB CONC 33.5 g/dL (32.0-36.0); MEAN CORPUSCULAR VOLUME 97.5 fL (80.0-94.0); MEAN PLATELET VOLUME 9.9 fL (7.4-11.4); MONOCYTES # (AUTO) 0.7 10^3/uL (0.0-1.0); MONOCYTES % (AUTO) 9.8 %; NEUTROPHILS # (AUTO) 3.8 10^3/uL (1.5-6.6); NEUTROPHILS % (AUTO) 55.9 %; PLT - PLATELET COUNT 282 10^3/uL (130-450); RED BLOOD COUNT 4.77 10^6/uL (4.70-6.10); RED CELL DISTRIBUTION WIDTH 12.1 % (12.0-15.0); WHITE BLOOD COUNT 6.8 x10^3/uL (4.8-10.8)
[2021-11-28 15:42] LABS: ALBUMIN 4.2 g/dL (3.2-5.5); ALBUMIN/GLOBULIN RATIO 1.4 (1.0-2.2); ALKALINE PHOSPHATASE 87 IU/L (42-121); ALT ALANINE AMINOTRANSFERASE 18 IU/L (10-60); AST ASPARTATE AMINOTRANSFERASE 23 IU/L (10-42); BILIRUBIN,TOTAL 0.7 mg/dL (0.2-1.0); BUN - BLOOD UREA NITROGEN 24 mg/dL (6-20); CALCIUM 8.9 mg/dL (8.5-10.3); CARBON DIOXIDE - CO2 24 mmol/L (21-32); CHLORIDE 101 mmol/L (101-111); CHOL/HDL RATIO 5.6 (<5.0); CHOLESTEROL 201 mg/dL; CREATININE 1.3 mg/dL (0.6-1.2); GFR - MDRD 55 (>89); GLUCOSE 113 mg/dL (70-100); HDL CHOLESTEROL 36 mg/dL; LDL CHOLESTEROL,CALCULATED 139 mg/dL; LDL/HDL RATIO 3.9 (<3.6); POTASSIUM 4.1 mmol/L (3.5-5.0); SODIUM 135 mmol/L (135-145); TOTAL PROTEIN 7.1 g/dL (6.7-8.2); TRIGLYCERIDES 129 mg/dL; VLDL CHOLESTEROL 26 mg/dL
== END 2021-11-28 08:51 | disposition home or self-care (01) ==
LOC: LAB.S 08:50
PROVIDERS: ATTEND Internal Medicine
DX: E78.1 Pure hyperglyceridemia (principal); Z12.5 Encounter for screening for malignant neoplasm of prostate; Z79.899 Other long term (current) drug therapy
CPT/HCPCS: 36415; 80053; 80061; 83721; 84153; 85025

== ENCOUNTER 2023-04-27 08:49 | Outpatient (CLI) | payer MEDICARE ==
[2023-04-27 14:56] LABS: BASOPHILS # (AUTO) 0.1 10^3/uL (0.0-0.1); EOSINOPHILS # (AUTO) 0.2 10^3/uL (0.0-0.7); EOSINOPHILS % (AUTO) 3.1 %; HCT - HEMATOCRIT 47.1 % (42.0-52.0); HGB - HEMOGLOBIN 15.5 g/dL (14.0-18.0); LYMPHOCYTES # (AUTO) 1.7 10^3/uL (1.5-3.5); LYMPHOCYTES % (AUTO) 28.9 %; MEAN CORPUSCULAR HEMOGLOBIN 32.2 pg (27.0-31.0); MEAN CORPUSCULAR HGB CONC 32.9 g/dL (32.0-36.0); MEAN CORPUSCULAR VOLUME 97.7 fL (80.0-94.0); MEAN PLATELET VOLUME 10.2 fL (7.4-11.4); MONOCYTES # (AUTO) 0.5 10^3/uL (0.0-1.0); MONOCYTES % (AUTO) 8.4 %; NEUTROPHILS # (AUTO) 3.4 10^3/uL (1.5-6.6); NEUTROPHILS % (AUTO) 58.4 %; PLT - PLATELET COUNT 248 10^3/uL (130-450); RED BLOOD COUNT 4.82 10^6/uL (4.70-6.10); RED CELL DISTRIBUTION WIDTH 12.3 % (12.0-15.0); WHITE BLOOD COUNT 5.8 x10^3/uL (4.8-10.8)
[2023-04-27 15:09] LABS: ALBUMIN 4.5 g/dL (3.2-5.5); ALBUMIN/GLOBULIN RATIO 1.7 (1.0-2.2); ALKALINE PHOSPHATASE 85 IU/L (42-121); ALT ALANINE AMINOTRANSFERASE 14 IU/L (10-60); AST ASPARTATE AMINOTRANSFERASE 19 IU/L (10-42); BILIRUBIN,TOTAL 0.7 mg/dL (0.2-1.0); BUN - BLOOD UREA NITROGEN 23 mg/dL (6-20); CALCIUM 9.4 mg/dL (8.5-10.3); CARBON DIOXIDE - CO2 29 mmol/L (21-32); CHLORIDE 105 mmol/L (101-111); CHOL/HDL RATIO 4.9 (<5.0); CHOLESTEROL 185 mg/dL; CREATININE 1.5 mg/dL (0.6-1.3); GFR - MDRD 47 (>89); GLUCOSE 115 mg/dL (74-104); HDL CHOLESTEROL 38 mg/dL; LDL CHOLESTEROL,CALCULATED 116 mg/dL; LDL/HDL RATIO 3.1 (<3.6); POTASSIUM 4.1 mmol/L (3.5-4.5); SODIUM 138 mmol/L (135-145); TOTAL PROTEIN 7.2 g/dL (6.4-8.9); TRIGLYCERIDES 157 mg/dL (48-352); VLDL CHOLESTEROL 31 mg/dL
== END 2023-04-27 08:50 | disposition home or self-care (01) ==
LOC: LAB.S 08:49
PROVIDERS: ATTEND Registered Nurse
DX: E78.1 Pure hyperglyceridemia (principal); Z79.899 Other long term (current) drug therapy; Z12.5 Encounter for screening for malignant neoplasm of prostate
CPT/HCPCS: 36415; 80053; 80061; 85025; G0103; 83721; 84153

== ENCOUNTER 2023-07-19 10:43 | Day surgery (SDC) | payer MEDICARE ==
[~2023-07-19 10:43] MED LIST changes: +BUPIVACAINE 0.25% PF 10 ML VIAL ONE; +LIDOCAINE-MPF 1% 30 ML VIAL ONE; +ONDANSETRON 4 MG/2 ML VIAL ONE; +ceFAZolin 2 GM VIAL ONE; -ceFAZolin 2 GM/50 ML 2 GM/50 ML BAG IV ONE
[2023-07-19] MEDS ORDERED: LACTATED RINGERS 1,000 ML IV ONE (11:07)
--- NOTE | 2023-07-19 11:25 | HISTORY & PHYSICAL EXAMINATION ---
Chief Complaint - Chief Complaint Chief Complaint: painful right groin bulge History of Present Illness - History Obtained From Records Reviewed: yes History obtained from: pt Exam Limitations: none - History of Present Illness HPI Comment/Other: history right inguinal hernia repair times 3 with orchiectomy and last repair laparoscopic History - Past Medical History Cardiovascular: reports: High cholesterol Respiratory: reports: None Endocrine/Autoimmune: reports: None GI: reports: None : reports: None HEENT: reports: Chronic vision loss, Other Psych: reports: None Musculoskeletal: reports: Osteoarthritis Derm: reports: Herpes zoster MRSA Hx?: No - Past Surgical History General: reports: Colonoscopy, Other Ortho: reports: Arthroscopic surgery Meds/Allgy - Home Medications Home Medications: Ambulatory Orders Medication Instructions Recorded Confirmed Acyclovir 400 mg PO BID PRN 02/16/21 07/16/23 gemfibroziL [Lopid] 600 mg PO BIDAC 02/16/21 07/16/23 - Allergies Allergies/Adverse Reactions: Allergies Allergy/AdvReac Type Severity Reaction Status Date / Time No Known Drug Allergies Allergy Verified 07/19/23 10:53 Review of Systems - Other Findings Other Findings: 10 pt ros as above otherwise unremarkable Exam - Vital Signs Vital Signs: Vital Signs x48h Temp Pulse Resp BP Pulse Ox O2 Flow Rate 07/19/23 11:08 36.2 C L 63 12 129/83 H 97 0 - Physical Exam General Appearance: positive: No acute distress, Alert Eyes Bilateral: positive: PERRL, EOMI ENT: positive: No signs of dehydration Neck: positive: No JVD Respiratory: positive: Breath sounds nml Cardiovascular: positive: Regular rate & rhythm Abdomen: positive: Other (right inguinal hernia present. no right testicle or cord structures) Neurologic/Psychiatric: positive: Oriented x3 Conclusion/Plan - Problem List (1) Inguinal hernia recurrent unilateral Conclusion/Plan: plan open right inguinal hernia repair with mesh. parq held and consent obtained
[2023-07-19] MEDS ORDERED: HYDROmorphone 0.5 MG/0.5 ML SYRINGE IVP PRN (11:37)
[2023-07-19] MEDS ORDERED: NALOXONE 0.4 MG/ML VIAL IVP PRN (11:37)
[2023-07-19] MEDS ORDERED: fentaNYL 100 MCG/2 ML VIAL IVP PRN (11:37)
[2023-07-19] MEDS ORDERED: ATROPINE ABBOJECT 1 MG/10 ML SYRINGE IVP PRN (11:37)
[2023-07-19] MEDS ORDERED: ePHEDrine 50 MG/ML VIAL IVP PRN (11:37)
[2023-07-19] MEDS ORDERED: ONDANSETRON 4 MG/2 ML VIAL IVP PRN (11:37)
--- NOTE | 2023-07-19 11:37 | ANESTHESIA ---
Pre-Anesthesia VS, & Labs - Diagnosis R inguinal hernia - Procedure r open inguinal hernia repair Vital Signs: Temp Pulse Resp BP Pulse Ox O2 Flow Rate 36.2 C L 63 12 129/83 H 97 0 07/19/23 11:08 07/19/23 11:08 07/19/23 11:08 07/19/23 11:08 07/19/23 11:08 07/19/23 11:08 Height: 5 ft 7 in Weight (kg): 72.9 kg Body Mass Index: 25.2 BMI Classification: Overweight - NPO >8 hours - Lab Results Lab results reviewed: No Home Medications and Allergies Acyclovir 400 mg PO BID PRN 02/16/21 gemfibroziL [Lopid] 600 mg PO BIDAC 02/16/21 Allergies/Adverse Reactions: Allergies Allergy/AdvReac Type Severity Reaction Status Date / Time No Known Drug Allergies Allergy Verified 07/19/23 10:53 Anes History & Medical History - Anesthetic History Anesthesia Complications: reports: No previous complications Family history of Anesthesia Complications: Denies Family history of Malignant Hyperthermia: Denies - Medical History Cardiovascular: reports: High cholesterol Pulmonary: reports: None Gastrointestinal: reports: None Urinary: reports: None Neuro: reports: None Musculoskeletal: reports: Osteoarthritis Endocrine/Autoimmune: reports: None Blood Disorders: reports: None Skin: reports: Herpes zoster Smoking Status: Never smoker Psychosocial: reports: No issues indicated - Surgical History General: reports: Colonoscopy, Other Orthopedic: reports: Arthroscopic surgery Exam General: Alert, Oriented x3, Cooperative Dental: WNL Mouth Openin Fingerbreadth Neck Mobility: Normal Mallampati classification: II Thyromental Distance: 4-6 cm Respiratory: Lungs clear Cardiovascular: Regular rate Plan Anesthesia Type: General, MAC Consent for Procedure(s) Verified and Reviewed: Yes Code Status: Attempt Resuscitation ASA classification: 2-Mild systemic disease Is this case an emergency?: No
[2023-07-19] MEDS ORDERED: fentaNYL 100 MCG/2 ML VIAL ONE (11:41)
[2023-07-19] MEDS ORDERED: PROPOFOL 500 MG/50 ML 500 MG/50 ML VIAL ONE ×2 (11:41→13:03)
[2023-07-19] MEDS ORDERED: LACTATED RINGERS 1,000 ML IV SCH (12:00)
[2023-07-19] MEDS ORDERED: GLYCOPYRROLATE 1 MG/5 ML VIAL ONE (12:13)
[2023-07-19] MEDS ORDERED: BUPIVACAINE 0.25% PF 10 ML VIAL SUBQ ONE (12:22)
[2023-07-19] MEDS ORDERED: LIDOCAINE 1% 50 ML MDV SUBQ ONE (12:23)
[2023-07-19] MEDS ORDERED: LACTATED RINGERS 250 ML IV ONE (13:17)
[2023-07-19] MEDS ORDERED: oxyCODONE 5 MG TABLET PO PRN (13:33)
--- NOTE | 2023-07-19 14:01 | OPERATIVE REPORT ---
Operative Report - General Procedure Date: 07/19/23 Planned Procedure: open repair recurrent x 3 right inguinal hernia Pre-Op Diagnosis: recurrent right inguinal hernia x 3 Procedure Performed: open repair recurrent right inguinal hernia with mesh Post Op Diagnosis: recurrent direct right inguinal hernia - Procedure Note Primary Surgeon: segundo ni Anesthesia Technique: Local, MAC Pathology: none Estimated Blood Loss (mL): 2 Drain/Tube Type: Other (none) Indications: painful hernia bulge Findings: 3 cm direct hernia Complications: none - Other Other Information/Narrative: The patient was properly identified brought to the operating room and placed in supine position. Monitored anesthesia care and sedation was given. He was prepped and draped in a sterile fashion and given preoperative antibiotics. A 5 cm incision was made cephalad of the pubic tubercle. Dissection proceeded sharply. The superficial epigastric vein was not present or was previously divided. Dissection proceeded sharply down to the aponeurosis. Aponeurosis was opened in the direction of its fibers extending to the external ring. Patient has history of orchiectomy at age 18 at time of prior repair. He had a direct inguinal hernia with 3 cm bulge fairly close to the pubic tubercle. The hernia sac was sharply mobilized away from surrounding tissue. There direct inguinal hernia was then reduced with a 2-0 silk pursestring suture. Scar tissue was sharply taken down exposing the shelving border of Poupart's ligament. Scar tissue was also taken down releasing the medial side of the aponeurosis. Polypropylene mesh was then cut to size and without tails. Polypropylene mesh was secured over the pubic tubercle along the shelving border of Poupart's ligament and medially along musculature fascia of the internal oblique with multiple interrupted 0 Ethibond sutures. The ilioinguinal nerve was not present. The iliohypogastric nerve also was not present within the area of surgery. The mesh lay in good position without tension. Aponeurosis was closed with a running 2-0 Vicryl suture. Manasa's was closed with interrupted 3-0 Vicryl suture. Buried interrupted subdermal 3-0 Vicryl sutures were then placed. Skin was closed with a running 4-0 Monocryl subcuticular suture. Dressing was applied. He tolerated the procedure very well was awakened and br ought to recovery in good condition.
--- NOTE | 2023-07-19 14:35 | ANESTHESIA POST OP EVALUATION ---
Anesthesia Post Eval - Post Anesthesia Eval Vitals: Last Vital Signs Temp 36.1 C L 07/19/23 14:13 Pulse 70 07/19/23 14:13 Resp 12 07/19/23 14:13 BP 122/74 07/19/23 14:13 Pulse Ox 98 07/19/23 14:13 O2 Flow Rate 0 07/19/23 11:08 CV Function Including HR & BP: Stable Pain Control: Satisfactory Nausea & Vomiting: Negative Mental Status: Baseline Respiratory Status: Airway Patent Hydration Status: Satisfactory Anesthesia Complications: None
[2023-07-19 14:39] VITALS: BP 122/74; O2SAT 98
== END 2023-07-19 10:44 | disposition home or self-care (01) ==
LOC: SDS 10:43
PROVIDERS: ATTEND Surgery
DX: K40.91 Unilateral inguinal hernia, without obstruction or gangrene, recurrent (principal)
CPT/HCPCS: 49520; C1781; J7120

== ENCOUNTER 2024-04-23 07:47 | Outpatient (CLI) | payer MEDICARE ==
[2024-04-23 14:48] LABS: BASOPHILS # (AUTO) 0.1 10^3/uL (0.0-0.1); BASOPHILS % (AUTO) 0.8 %; EOSINOPHILS # (AUTO) 0.3 10^3/uL (0.0-0.7); EOSINOPHILS % (AUTO) 4.1 %; HCT - HEMATOCRIT 43.3 % (42.0-52.0); HGB - HEMOGLOBIN 14.2 g/dL (14.0-18.0); LYMPHOCYTES # (AUTO) 1.7 10^3/uL (1.5-3.5); LYMPHOCYTES % (AUTO) 27.3 %; MEAN CORPUSCULAR HEMOGLOBIN 32.1 pg (27.0-31.0); MEAN CORPUSCULAR HGB CONC 32.8 g/dL (32.0-36.0); MEAN CORPUSCULAR VOLUME 97.7 fL (80.0-94.0); MEAN PLATELET VOLUME 10.1 fL (7.4-11.4); MONOCYTES # (AUTO) 0.6 10^3/uL (0.0-1.0); NEUTROPHILS # (AUTO) 3.5 10^3/uL (1.5-6.6); NEUTROPHILS % (AUTO) 57.3 %; PLT - PLATELET COUNT 234 10^3/uL (130-450); RED BLOOD COUNT 4.43 10^6/uL (4.70-6.10); RED CELL DISTRIBUTION WIDTH 12.4 % (12.0-15.0); WHITE BLOOD COUNT 6.1 x10^3/uL (4.8-10.8)
[2024-04-23 15:34] LABS: ALBUMIN 4.3 g/dL (3.2-5.5); ALKALINE PHOSPHATASE 89 IU/L (42-121); ALT ALANINE AMINOTRANSFERASE 12 IU/L (10-60); AST ASPARTATE AMINOTRANSFERASE 18 IU/L (10-42); BILIRUBIN,TOTAL 0.5 mg/dL (0.2-1.0); BUN - BLOOD UREA NITROGEN 22 mg/dL (6-20); CALCIUM 9.4 mg/dL (8.5-10.3); CARBON DIOXIDE - CO2 26 mmol/L (21-32); CHLORIDE 107 mmol/L (101-111); CHOL/HDL RATIO 5.8 (<5.0); CHOLESTEROL 203 mg/dL; CREATININE 1.5 mg/dL (0.6-1.3); GFR - MDRD 47 (>89); GLUCOSE 110 mg/dL (74-104); HDL CHOLESTEROL 35 mg/dL; LDL CHOLESTEROL,CALCULATED 142 mg/dL; LDL/HDL RATIO 4.1 (<3.6); POTASSIUM 4.2 mmol/L (3.5-4.5); SODIUM 139 mmol/L (135-145); TOTAL PROTEIN 6.5 g/dL (6.4-8.9); TRIGLYCERIDES 130 mg/dL; VLDL CHOLESTEROL 26 mg/dL
== END 2024-04-23 07:48 | disposition home or self-care (01) ==
LOC: LAB.S 07:47
PROVIDERS: ATTEND Registered Nurse
DX: Z13.228 Encounter for screening for other metabolic disorders (principal); Z13.220 Encounter for screening for lipoid disorders; Z13.29 Encounter for screening for other suspected endocrine disorder; Z13.0 Encounter for screening for diseases of the blood and blood-forming organs and certain disorders involving the immune mechanism
CPT/HCPCS: 36415; 80053; 80061; 83721; 84443; 85025

== ENCOUNTER 2024-06-03 10:10 | Outpatient (CLI) | payer MEDICARE ==
--- NOTE | 2024-06-03 21:47 | XRAY Report ---
PROCEDURE: Knee 4+V LT INDICATIONS: LEFT KNEE PAIN TECHNIQUE: 4 views of the knee were acquired. COMPARISON: None. FINDINGS: Bones: No acute fractures or dislocations. No suspicious bony lesions. Moderate disc space narrow ing of the medial lateral femorotibial compartments with small marginal osteophytes. Mild joint space narrowing at the patellofemoral compartment. Soft tissues: No knee joint effusion. No suspicious soft tissue calcifications. 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 Reviewed by: Willem Pires MD on 06/03/2024 8:45 PM RON[facility] Approved by: Willem Pires MD on 06/03/2024 8:45 PM RON[facility] Station ID: [id number]
== END 2024-06-03 10:11 | disposition home or self-care (01) ==
LOC: DI 10:10
PROVIDERS: ATTEND Registered Nurse
DX: M17.12 Unilateral primary osteoarthritis, left knee (principal)